=== PATIENT | male | born 1960 | race Caucasian/White ===

== ENCOUNTER → 2017-01-29 | Outpatient (CLI) | payer BC ==
[~2017-01-29] MED LIST: ACET-1311 PO; ASPI-435 PO; ASPI325T39 PO; AZITTAB PO; CEFP200T14 PO; DEXT30TA7 PO; MULT-506 PO; OMEG10007 PO; XRL10 PO; aspirin PO; fish oil PO
--- NOTE | 2017-01-29 11:40 | DIAGNOSTIC IMAGING REPORT ---
ULTRASOUND VENOUS DOPPLER ULTRASOUND OF THE LEFT LOWER EXTREMITY CLINICAL HISTORY: Left leg swelling. History of DVT. COMPARISON STUDY: None FINDINGS: Real-time and color flow Doppler imaging were performed. Flow was seen within the femoral, popliteal and calf veins with no intraluminal thrombus demonstrated. The saphenous vein is patent. IMPRESSION: No evidence of left lower extremity DVT. Electronically signed by: Shaun Klein M.D. 01/29/2017 11:38 AM Dictated Date/Time: 01/29/2017 11:37 AM
== END | disposition home or self-care (01) ==
LOC: C.ULTR 11:03
PROVIDERS: ATTEND Nurse Practitioner Family
DX: M79.605 Pain in left leg (principal); M79.89 Other specified soft tissue disorders; Z86.718 Personal history of other venous thrombosis and embolism

== ENCOUNTER → 2017-02-25 | Outpatient (CLI) | payer BC ==
--- NOTE | 2017-02-25 19:56 | DIAGNOSTIC IMAGING REPORT ---
LEFT FOOT 3 VIEWS CLINICAL HISTORY: Left foot pain. FINDINGS: 3 views of the left foot are obtained. No prior studies are available for comparison at the time of dictation. The skeletal structures are well mineralized. No fracture is seen. There are large dorsal and plantar calcaneal enthesophytes. The joint spaces of the foot appear preserved. No erosive change is seen. The overlying soft tissues are within normal limits. IMPRESSION: 1. No acute bony abnormality is identified in the left foot. 2. Large heel spurs. Electronically signed by: Castillo Whitman M.D. 02/25/2017 7:54 PM Dictated Date/Time: 02/25/2017 7:53 PM
== END | disposition home or self-care (01) ==
LOC: C.RAD 17:46
PROVIDERS: ATTEND Family Medicine
DX: M79.672 Pain in left foot (principal); M77.32 Calcaneal spur, left foot

== ENCOUNTER → 2017-03-11 | Outpatient (CLI) | payer BC ==
--- NOTE | 2017-03-11 16:42 | DIAGNOSTIC IMAGING REPORT ---
ULTRASOUND ABDOMEN COMPLETE CLINICAL HISTORY: Lower extremity edema. COMPARISON STUDY: No priors. TECHNIQUE: Real-time, grayscale, and color flow sonography of the abdomen was performed. Images are reviewed in the transverse and longitudinal planes. FINDINGS: Liver: The liver is enlarged, measuring 20 cm in length. The liver demonstrates heterogeneously increased echotexture consistent with hepatic steatosis. There is no intrahepatic biliary ductal dilatation. The main portal vein is patent. There is a 3.9 cm lobulated cyst is identified in the left hepatic lobe. Gallbladder: There is biliary sludge. The gallbladder is otherwise normal in appearance. No shadowing gallstones are identified. There is no gallbladder wall thickening or pericholecystic fluid. A sonographic Spencer's sign is reportedly absent. The common bile duct measures up to 0.4 cm in diameter. Pancreas: Visualized portions of the pancreatic head and body are normal in appearance. Spleen: The spleen is normal in size and echotexture, measuring 9.7 cm in length. Kidneys: The kidneys are normal in size and echotexture. There is no hydronephrosis. The right kidney measures 9.4 cm in length and the left kidney measures 10.9 cm in length. No shadowing calculi are identified. A 1.8 cm cyst is noted in the left kidney. Abdominal vasculature: Visualized portions of the abdominal aorta are normal in caliber. Ascites: None. IMPRESSION: 1. No acute sonographic abnormality is identified. 2. Biliary sludge. No shadowing gallstones are seen. 3. Hepatomegaly and hepatic steatosis. Electronically signed by: Castillo Whitman M.D. 03/11/2017 4:41 PM Dictated Date/Time: 03/11/2017 4:39 PM
== END | disposition home or self-care (01) ==
LOC: C.ULTR 15:40
PROVIDERS: ATTEND Family Medicine
DX: R60.0 Localized edema (principal)

== ENCOUNTER → 2017-03-15 | Outpatient (CLI) | payer BC ==
--- NOTE | 2017-03-15 12:30 | ECHOCARDIOGRAM REPORT ---
*NOTICE TO RECEIVING DEMOCRAT AGENCY This information is strictly Confidential and protected under [place] law. [place] law prohibits you from making any further disclosure of this information unless further disclosure is expressly permitted by the written consent of the person to whom it pertains or is authorized by law. A general authorization for the release of medical or other information is not sufficient for this purpose. Hospital accepts no responsibility if the information is made available to any other person, INCLUDING THE PATIENT. Interpretation Summary * Name: TANIKA KU Study Date: 03/15/2017 10:46 AM BP: 135/78 mmHg * Patient Location: [facility] HR: 87 * : 1960 (M/d/yyyy) Gender: Male Height: 72 in * Age: 56 yrs Ethnicity: CA Weight: 260 lb * Ordering Physician: David Garcia * Referring Physician: David Garcia * Performed By: Radha Santamaria RDCS * * Reason For Study: Bilateral leg edema * BSA: 2.4 m2 * -- Conclusions -- * There is mild concentric left ventricular hypertrophy. * Left ventricular systolic function is normal. * Grade I diastolic dysfunction, (abnormal relaxation pattern). Procedure Details * A complete two-dimensional transthoracic echocardiogram was performed (2D, M-mode, Doppler and color flow Doppler). Left Ventricle * The left ventricle is normal in size. * There is mild concentric left ventricular hypertrophy. * Ejection Fraction = 55-60%. * Left ventricular systolic function is normal. * Grade I diastolic dysfunction, (abnormal relaxation pattern). * The left ventricular wall motion is normal. Right Ventricle * The right ventricle is normal in size and function. Atria * The left atrial size is normal. * Right atrial size is normal. Mitral Valve * The mitral valve is grossly normal. * Significant mitral regurgitation is absent. Tricuspid Valve * The tricuspid valve is not well visualized, but is grossly normal. * Significant tricuspid regurgitation is absent. Aortic Valve * Probably trileaflet * No hemodynamically significant valvular aortic stenosis. * No aortic regurgitation is present. Great Vessels * The aortic root is normal size. Pericardium/Pleural * There is no pericardial effusion. Great Vessels * Normal inferior vena cava size and collapsability with sniff indicates a normal right atrial pressure of 3 mmHg MMode 2D Measurements and Calculations IVSd 1.2 cm LVIDd 3.7 cm LVIDs 2.5 cm LVPWd 1.3 cm IVS/LVPW 0.87 FS 31.8 % EDV(Teich) 57.3 ml ESV(Teich) 22.5 ml EF(Teich) 60.7 % EDV(cubed) 49.7 ml ESV(cubed) 15.8 ml EF(cubed) 68.2 % LV mass(C)d 153.9 grams LV mass(C)dI 64.6 grams/m\S\2 CO(Teich) 2.9 l/min CI(Teich) 1.2 l/min/m\S\2 SV(Teich) 34.8 ml SI(Teich) 14.6 ml/m\S\2 CO(cubed) 2.8 l/min CI(cubed) 1.2 l/min/m\S\2 SV(cubed) 33.9 ml SI(cubed) 14.2 ml/m\S\2 Ao root diam 3.8 cm Ao root area 11.5 cm\S\2 ACS 2.4 cm LA dimension 1.8 cm asc Aorta Diam 3.6 cm LA/Ao 0.48 LVOT diam 2.0 cm LVOT area 3.1 cm\S\2 LVAd ap4 29.2 cm\S\2 LVLd ap4 8.8 cm EDV(MOD-sp4) 80.0 ml LVAs ap4 16.6 cm\S\2 LVLs ap4 7.1 cm ESV(MOD-sp4) 33.0 ml EF(MOD-sp4) 58.8 % LVAd ap2 29.6 cm\S\2 LVLd ap2 8.3 cm EDV(MOD-sp2) 88.0 ml LVAs ap2 17.4 cm\S\2 LVLs ap2 6.5 cm ESV(MOD-sp2) 39.0 ml EF(MOD-sp2) 55.7 % CO(MOD-sp4) 3.9 l/min CI(MOD-sp4) 1.6 l/min/m\S\2 SV(MOD-sp4) 47.0 ml SI(MOD-sp4) 19.7 ml/m\S\2 CO(MOD-sp2) 4.1 l/min CI(MOD-sp2) 1.7 l/min/m\S\2 SV(MOD-sp2) 49.0 ml SI(MOD-sp2) 20.6 ml/m\S\2 Doppler Measurements and Calculations MV E max elma 63.7 cm/sec MV A max elma 63.7 cm/sec MV E/A 1.0 MV dec time 0.20 sec Ao V2 max 127.6 cm/sec Ao max PG 6.5 mmHg Ao max PG (full) 1.0 mmHg KONRAD(V,A) 2.9 cm\S\2 KONRAD(V,D) 2.9 cm\S\2 LV V1 max PG 5.5 mmHg LV V1 max 117.2 cm/sec PA V2 max 139.8 cm/sec PA max PG 7.8 mmHg PA acc slope 632.7 cm/sec\S\2 PA acc time 0.13 sec PA pr(Accel) 20.4 mmHg
== END | disposition home or self-care (01) ==
LOC: C.CPL 10:26
PROVIDERS: ATTEND Family Medicine
DX: R60.0 Localized edema (principal); I51.7 Cardiomegaly

== ENCOUNTER → 2017-08-19 | Outpatient (CLI) | payer BC ==
--- NOTE | 2017-08-19 16:01 | DIAGNOSTIC IMAGING REPORT ---
CHEST 2 VIEWS ROUTINE CLINICAL HISTORY: FEVER, RALES IN RLL COMPARISON STUDY: No previous studies for comparison. FINDINGS: The heart is normal in size. There is mild aortic tortuosity/ectasia. There is no failure. There is no focal pulmonary consolidation. There is mild blunting of the right lateral posterior costophrenic angles suggesting a small effusion.[ IMPRESSION: Suspected small right pleural effusion. No evidence of focal pulmonary consolidation. No evidence of failure. Electronically signed by: Shaun Klein M.D. 08/19/2017 3:59 PM Dictated Date/Time: 08/19/2017 3:58 PM
== END | disposition home or self-care (01) ==
LOC: C.RAD1850 14:36
PROVIDERS: ATTEND Student in an Organized Health Care Education/Training Program
DX: B34.9 Viral infection, unspecified (principal)

== ENCOUNTER → 2017-08-21 | Outpatient (CLI) | payer BC ==
--- NOTE | 2017-08-21 16:07 | DIAGNOSTIC IMAGING REPORT ---
CHEST DECUBS HISTORY: FEVER, POSSIBLE SMALL RIGHT PLEURAL EFFUSION ON PREVIOUS EXAM COMPARISON: Chest 08/19/2017. FINDINGS: Decubitus views of the chest were performed. There appears to be a trace right pleural effusion. No left pleural effusion identified. IMPRESSION: Trace right pleural effusion. Electronically signed by: Tristen Connor M.D. 08/21/2017 4:06 PM Dictated Date/Time: 08/21/2017 4:05 PM
== END | disposition home or self-care (01) ==
LOC: C.RAD 14:58
PROVIDERS: ATTEND Student in an Organized Health Care Education/Training Program
DX: J90 Pleural effusion, not elsewhere classified (principal)

== ENCOUNTER 2017-08-25 15:54 | Emergency (ER) | payer BC ==
[~2017-08-25] VITALS: Ht 182.9 cm; Wt 109.6 kg
[~2017-08-25 15:54] MED LIST changes: -ACET-1311 PO; -ASPI325T39 PO; -AZITTAB PO; -CEFP200T14 PO; -DEXT30TA7 PO; -OMEG10007 PO; -XRL10 PO
[2017-08-25 15:56] VITALS: TEMP 37
[2017-08-25] MEDS ORDERED: SODIUM CHLORIDE 0.9% 1000ML 1,000 ML IV ONE (16:14)
[2017-08-25] MEDS ORDERED: ACETAMINOPHEN 325 MG TAB PO STA (16:14)
[2017-08-25] MEDS ORDERED: OMEG10007 PO (16:28)
[2017-08-25] MEDS ORDERED: ASPI325T39 PO (16:28)
[2017-08-25] MEDS ORDERED: XRL10 PO (16:28)
[2017-08-25] MEDS ORDERED: OPTIRAY 320 IV PRN (16:30)
[2017-08-25] MEDS ORDERED: AZITTAB PO (16:31)
[2017-08-25] MEDS ORDERED: ACET-1311 PO (16:31)
[2017-08-25] MEDS ORDERED: DEXT30TA7 PO (16:31)
--- NOTE | 2017-08-25 16:37 | EMERGENCY ROOM VISIT NOTE ---
History Report prepared by Dilan: Wilman Collins Under the Supervision of: Dr. John Luis M.D. First contact with patient: 16:00 Chief Complaint: ABNORMAL LABS Stated Complaint: HIGH D-DIMER, FLU SX, ESR History of Present Illness The patient is a 57 year old white male with a past medical history of right leg DVT and HTN that recently resolved, who presents to the ED with a cc of an elevated D-Dimer found on labs this morning. Positive fevers, cough, nausea, lack of appetite. Negative leg swelling, abdominal pain, SOB, and hematuria. The patient states that two weeks ago he was starting to get sick and was getting fevers and chills. He was seen by his PCP, and they found he had a right sided pleural effusion, and it was better two days ago. He recently was started on a z-pack, and they found that his D-dimer was elevated, and he had a sed rate of 109. He takes aspirin daily, and he takes Xarelto when he travels. 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 He states that he flew back from [place] in May. Source of History: patient Onset: this morning Position: other (global) Quality: other (elevated D-Dimer) Associated Symptoms: + fevers, + cough, + nausea, No SOB, No abdominal pain , No urinary symptoms Review of Systems See HPI for pertinent positives and negatives. A total of ten systems were reviewed and were otherwise negative. Past Medical & Surgical Medical Problems: (1) DVT (deep venous thrombosis) (2) HTN (hypertension) Social History Smoking Status: Never Smoker Marital Status: Housing Status: lives with family Occupation Status: employed Current/Historical Medications Scheduled Aspirin (Aspirin Ec), 325 MG PO DAILY Azithromycin (Zithromax Z-Vinicius), 1 PKT PO UD Cefpodoxime Proxetil (Cefpodoxime Proxetil), 1 TAB PO BID Fish Oil ([place]-3), 1 CAP PO DAILY Multivitamin (Multivitamin), 1 TAB PO DAILY Scheduled PRN Acetaminophen (Tylenol), 650 MG PO DIRECTED PRN for Pain or Fever Aspirin (Aspirin 81), 1 DOSE PO DIRECTED PRN for "TRAVELING REGIMEN" Dextromethorphan-Guaifenesin (Mucinex Dm), 1 TAB PO Q12 PRN for CONGESTION Rivaroxaban (Xarelto), Unknown Dose PO DAILY PRN for "DAYS OF TRAVEL" ONLY Allergies Coded Allergies: Codeine (Verified Allergy, Intermediate, HIVES, 08/25/17) Penicillins (Verified Allergy, Intermediate, HIVES, 08/25/17) Physical Exam Vital Signs Date Time Temp Pulse Resp B/P (MAP) Pulse Ox O2 Delivery O2 Flow Rate FiO2 08/25/17 19:53 97 23 139/95 97 08/25/17 19:45 97 20 96 08/25/17 19:30 98 97 08/25/17 19:15 94 96 08/25/17 19:00 98 16 96 08/25/17 18:25 101 19 147/97 95 Room Air 08/25/17 17:30 104 08/25/17 15:56 37.0 113 17 145/100 96 Room Air Physical Exam GENERAL: Awake, alert, well-appearing, NAD HENT: Normocephalic, atraumatic. EYES: Normal conjunctiva. Sclera non-icteric. NECK: Non-stridulous. Supple. No nuchal rigidity. FROM. RESPIRATORY: CTAB, no rhonchi, wheezing, crackles CARDIAC: RRR, no MRG ABDOMEN: Soft, NTND, BS+ MSK: No CVA TTP. 1-2+ pitting edema in the RLE which is asymmetric to the left. No calf pain, calor, or erythema. No chest wall TTP NEURO: GCS 15, CN 2-12 intact, moves all 4s on command SKIN: No rash or jaundice noted. Medical Decision & Procedures ER Provider Diagnostic Interpretation: Radiology results as stated below per my review and radiologist interpretation: (CHEST FOR PE) ANGIO WITH CT DOSE: 628.72 mGy.cm HISTORY: Chest pain dyspnea TECHNIQUE: Multiaxial CT images of the chest were performed following the intravenous administration of contrast to evaluate the pulmonary arteries. Maximal intensity projection images were also obtained. A dose lowering technique was utilized adhering to the principles of ALARA. COMPARISON STUDY: None. FINDINGS: Thoracic aorta is normal in course and caliber. Pulmonary vasculature enhances uniformly. There are no major filling defects. There is focal parenchymal infiltrate right lung base. There is trace amount of right and to a lesser extent left pleural fluid. Heart is at the upper limits normal terms of size. Examination is negative for pneumothorax. His note is made of heterogeneity of the central right hepatic lobe with a stick process involving the central left hepatic lobe. Correlation with a prior abdominal ultrasound dated 03/11/2017 suggests and the left hepatic lobe cysts as well as potential fatty infiltration of the central right hepatic lobe. IMPRESSION: 1. Study is negative for pulmonary embolus. 2. Small parenchymal infiltrate right base combined with a small right effusion. The above report was generated using voice recognition software. It may contain grammatical, syntax or spelling errors. Electronically signed by: Jonathan Julien M.D. 08/25/2017 6:34 PM Dictated Date/Time: 08/25/2017 6:30 PM CHEST ONE VIEW PORTABLE CLINICAL HISTORY: Evaluate Fever/Sepsis dyspnea COMPARISON STUDY: 08/21/2017 FINDINGS: Potential developing interstitial infiltrates involving the right and to lesser extent left base. Mid and upper lungs are considered clear. No evidence for cardiac enlargement. IMPRESSION: Developing right and to a lesser extent left basilar parenchymal infiltrates. The above report was generated using voice recognition software. It may contain grammatical, syntax or spelling errors. Electronically signed by: Jonathan Julien M.D. 08/25/2017 5:16 PM Dictated Date/Time: 08/25/2017 5:16 PM R VENOUS DOPP LOWER EXT UNILAT CLINICAL HISTORY: prior DVT, swelling pain. Edema. TECHNIQUE: Venous Doppler COMPARISON STUDY: None FINDINGS: Findings of mild venous scarring of the right popliteal vein. No evidence for acute deep venous thrombosis. Compressibility and augmentation characteristics are unremarkable. IMPRESSION: No evidence for acute deep venous thrombosis. Mild venous scarring right popliteal vein. The above report was generated using voice recognition software. It may contain grammatical, syntax or spelling errors. Electronically signed by: Jonathan Julien M.D. 08/25/2017 6:20 PM Dictated Date/Time: 08/25/2017 6:19 PM Laboratory Results 08/25/17 16:25 Red Blood Count 3.78, Mean Corpuscular Volume 94.2, Mean Corpuscular Hemoglobin 33.6, Mean Corpuscular Hemoglobin Concent 35.7, Mean Platelet Volume 8.8, Neutrophils (%) (Auto) 76.9, Lymphocytes (%) (Auto) 11.7, Monocytes (%) (Auto) 10.5, Eosinophils (%) (Auto) 0.4, Basophils (%) (Auto) 0.1, Neutrophils # (Auto ) 12.16, Lymphocytes # (Auto) 1.86, Monocytes # (Auto) 1.66, Eosinophils # (Auto ) 0.07, Basophils # (Auto) 0.02 08/25/17 16:25 Test 08/25/17 16:25 08/25/17 16:46 White Blood Count 15.84 K/uL (4.8-10.8) Red Blood Count 3.78 M/uL (4.7-6.1) Hemoglobin 12.7 g/dL (14.0-18.0) Hematocrit 35.6 % (42-52) Mean Corpuscular Volume 94.2 fL (80-100) Mean Corpuscular Hemoglobin 33.6 pg (25-34) Mean Corpuscular Hemoglobin Concent 35.7 g/dl (32-36) Platelet Count 423 K/uL (130-400) Mean Platelet Volume 8.8 fL (7.4-10.4) Neutrophils (%) (Auto) 76.9 % Lymphocytes (%) (Auto) 11.7 % Monocytes (%) (Auto) 10.5 % Eosinophils (%) (Auto) 0.4 % Basophils (%) (Auto) 0.1 % Neutrophils # (Auto) 12.16 K/uL (1.4-6.5) Lymphocytes # (Auto) 1.86 K/uL (1.2-3.4) Monocytes # (Auto) 1.66 K/uL (0.11-0.59) Eosinophils # (Auto) 0.07 K/uL (0-0.5) Basophils # (Auto) 0.02 K/uL (0-0.2) RDW Standard Deviation 44.2 fL (36.4-46.3) RDW Coefficient of Variation 12.8 % (11.5-14.5) Immature Granulocyte % (Auto) 0.4 % Immature Granulocyte # (Auto) 0.07 K/uL (0.00-0.02) Prothrombin Time 13.0 SECONDS (9.0-12.0) Prothromb Time International Ratio 1.2 (0.9-1.1) Activated Partial Thromboplast Time 25.9 SECONDS (21.0-31.0) Partial Thromboplastin Ratio 1.0 Anion Gap 6.0 mmol/L (3-11) Est Creatinine Clear Calc Drug Dose 95.9 ml/min Estimated GFR () 86.5 Estimated GFR (Non- 74.6 BUN/Creatinine Ratio 12.0 (10-20) Calcium Level 8.7 mg/dl (8.5-10.1) Total Bilirubin 0.8 mg/dl (0.2-1) Direct Bilirubin 0.3 mg/dl (0-0.2) Aspartate Amino Transf (AST/SGOT) 35 U/L (15-37) Alanine Aminotransferase (ALT/SGPT) 74 U/L (12-78) Alkaline Phosphatase 151 U/L (45-117) Total Protein 7.5 gm/dl (6.4-8.2) Albumin 2.4 gm/dl (3.4-5.0) Lipase 144 U/L (73-393) Urine Color YELLOW Urine Appearance CLEAR (CLEAR) Urine pH 6.0 (4.5-7.5) Urine Specific Sixes 1.020 (1.000-1.030) Urine Protein NEG (NEG) Urine Glucose (UA) NEG (NEG) Urine Ketones NEG (NEG) Urine Occult Blood TRACE (NEG) Urine Nitrite NEG (NEG) Urine Bilirubin NEG (NEG) Urine Urobilinogen POS (NEG) Urine Leukocyte Esterase NEG (NEG) Urine WBC (Auto) 1-5 /hpf (0-5) Urine RBC (Auto) 5-10 /hpf (0-4) Urine Hyaline Casts (Auto) 1-5 /lpf (0-5) Urine Epithelial Cells (Auto) 5-10 /lpf (0-5) Urine Bacteria (Auto) NEG (NEG) Influenza Type A Antigen Neg for Influ A (NEG) Influenza Type B Antigen Neg for Influ B (NEG) Laboratory results reviewed by me Medications Administered Medications (Trade) Dose Ordered Sig/Nicolle Route Start Time Stop Time Status Last Admin Dose Admin Sodium Chloride 1,000 ml @ 2,000 mls/hr Q30M ONCE IV 08/25/17 16:14 08/25/17 16:43 DC 08/25/17 16:14 2,000 MLS/HR Acetaminophen (Tylenol Tab) 650 mg NOW STAT PO 08/25/17 16:14 08/25/17 16:19 DC 08/25/17 16:14 650 MG Ceftriaxone Sodium (Rocephin Inj) 1 gm NOW STAT IV 08/25/17 17:36 08/25/17 17:39 DC 08/25/17 17:36 1 GM ECG Indication: other (elevated D-Dimer) Rate (beats per minute): 107 Rhythm: sinus tachycardia Findings: T-wave inversion (in lead 3), no ectopy, other (Normal intervals, normal axis. No other STS changes or TWI) ED Course 1600: The patient was evaluated in room C9. A complete history and physical exam was performed. 1837: I reevaluated the patient, and he was doing well. 1911: I reevaluated the patient. Discussed results and discharge instructions: He verbalized understanding and agreement. The patient is ready for discharge. Medical Decision The patient is a 57 year old white male with a past medical history of right leg DVT and HTN that recently resolved, who presents to the ED with a cc of an elevated D-Dimer found on labs this morning. Positive fevers, cough, nausea, lack of appetite. Negative leg swelling, abdominal pain, SOB, and hematuria. Triage Nursing notes reviewed. The patient's presentation and history were concerning for URI, pneumonia, bronchitis, DVT, PE, chronic lymphedema. Patient was seen and evaluated the bedside. Patient stated he said some infectious type symptoms of the last 3-4 weeks. Patient has had some documented fevers and cough with clear sputum. Patient does have a history of prior DVT right lower extremity swelling which is chronic. She denies any recent car or plane travel. Patient denies any shortness breath or chest pain. He was seen in clinic where he had an elevated sedimentation rate as well as d -dimer. Bedside patient is nontoxic well-appearing and not in any acute distress. Patient is not tachypneic nor hypoxic. The elevated labs may be related to his infectious type symptoms are given the patient's prior DVT further workup was initiated. Patient had blood work, ultrasound of the right lower extremity and CT PE protocol in addition to EKG and supportive care. Patient's EKG did show some sinus tach but was nonischemic. Patient's blood work did show a mild leukocytosis with an elevated white blood cell count. Patient had a chest x-ray with bilateral patchy opacities. Patient was not hypoxic or tachypneic. Patient was given a dose of Rocephin. Patient's heart rate improved improved supportive care. Patient's ultrasound of the right lower extremity was negative for DVT. Patient's CT of the chest negative for any acute pulmonary embolus. Patient did show signs of consolidation. Upon reassessment patient was borderline tachycardic feeling much improved. Patient' s curb 65 score was 0. Given patient's improved mental in his symptoms he was switched to a different antibiotic at this time and was considered suitable for outpatient treatment and follow-up. Patient was given strict follow-up, discharge, return precautions. Patient agreed with plan of care and was safely discharged home. Medication Reconcilliation Current Medication List: was personally reviewed by me Blood Pressure Screening Patient's blood pressure: Elevated blood pressure Blood pressure disposition: Referred to PCP Impression Primary Impression: Abnormal laboratory test Additional Impression: Pneumonia Scribe Attestation The scribe's documentation has been prepared under my direction and personally reviewed by me in its entirety. I confirm that the note above accurately reflects all work, treatment, procedures, and medical decision making performed by me. Departure Information Dispostion Home / Self-Care Prescriptions Cefpodoxime Proxetil (CEFPODOXIME PROXETIL) 200 Mg Tab 1 TAB PO BID for 7 Days, #14 TAB Prov: John Luis M.D. 08/25/17 Referrals David Garcia M.D. (PCP) Forms HOME CARE DOCUMENTATION FORM, IMPORTANT VISIT INFORMATION, WORK / SCHOOL INSTRUCTIONS Patient Instructions My [facility], Pneumonia Additional Instructions Please return to the emergency department if you have worsening or recurrent symptoms not amenable to at-home treatment. Please call for a follow-up appointment with her primary care physician. Please take your medications as prescribed. If you have other concerns and/or complaints please feel free to also call your primary care physician's office or return the ED for further evaluation, management, and treatment. You may take 600 mg Ibuprofen every 6 hours as needed for pain with food for no more than 2 consecutive days. You may take tylenol 1000mg every 6 hours as needed for pain. You may take motrin and tylenol separately or at the same time. Continue your other supportive care efforts at home. Take your antibiotics as prescribed. Please stop using the other antibiotics you were given. You have been examined and treated today on an emergency basis only. This is not a substitute for, or an effort to provide, complete comprehensive medical care. It is impossible to recognize and treat all injuries or illnesses in a single emergency department visit. It is therefore important that you follow up closely with [facility]. Call as soon as possible for an appointment. Thank you for your time and consideration. I look forward to speaking with you again soon. Please don't hesitate to call us if you have any questions. Problem Qualifiers Additional Impression: Pneumonia Pneumonia type: due to unspecified organism Laterality: right Lung location : lower lobe of lung Qualified Codes: J18.1 - Lobar pneumonia, unspecified organism
[2017-08-25 16:40] LABS: BASO % 0.1 %; BASO ABS # 0.02 K/uL (0-0.2); COMPLETE YES; EOS % 0.4 %; HEMATOCRIT 35.6 % (42-52); IG% 0.4 %; LYMPH % 11.7 %; LYMPH ABS # 1.86 K/uL (1.2-3.4); MEAN CELL VOLUME 94.2 fL (80-100); MEAN CORPUSCULAR HEMOGLOBIN 33.6 pg (25-34); MEAN CORPUSCULAR HGB CONC 35.7 g/dl (32-36); MEAN PLATELET VOLUME 8.8 fL (7.4-10.4); MONO % 10.5 %; NEUT % 76.9 %; PLATELET COUNT 423 K/uL (130-400); RED BLOOD COUNT 3.78 M/uL (4.7-6.1); WHITE BLOOD COUNT 15.84 K/uL (4.8-10.8)
[2017-08-25 16:49] VITALS: Ht 182.9 cm; Wt 109.6 kg
[2017-08-25 16:49] LABS: INR 1.2 (0.9-1.1)
[2017-08-25 16:58] LABS: CALCIUM 8.7 mg/dl (8.5-10.1); CREATININE 1.1 mg/dl (0.60-1.40); POTASSIUM 3.6 mmol/L (3.5-5.1)
[2017-08-25 17:00] LABS: MANUAL MICROSCOPIC REQUIRED? NO; REVIEW REQ? NO; URINE APPEARANCE CLEAR (CLEAR); URINE BILIRUBIN NEG (NEG); URINE COLOR YELLOW; URINE NITRITE NEG (NEG); UROBILINOGEN POS (NEG); ZZUR CULT IF INDIC CLEAN CATCH NO
--- NOTE | 2017-08-25 17:18 | DIAGNOSTIC IMAGING REPORT ---
CHEST ONE VIEW PORTABLE CLINICAL HISTORY: Evaluate Fever/Sepsis dyspnea COMPARISON STUDY: 08/21/2017 FINDINGS: Potential developing interstitial infiltrates involving the right and to lesser extent left base. Mid and upper lungs are considered clear. No evidence for cardiac enlargement. IMPRESSION: Developing right and to a lesser extent left basilar parenchymal infiltrates. The above report was generated using voice recognition software. It may contain grammatical, syntax or spelling errors. Electronically signed by: Jonathan Julien M.D. 08/25/2017 5:16 PM Dictated Date/Time: 08/25/2017 5:16 PM
[2017-08-25] MEDS ORDERED: CEFTRIAXONE SOD INJ 1 GM ADDVIAL IV STA (17:36)
--- NOTE | 2017-08-25 18:21 | DIAGNOSTIC IMAGING REPORT ---
R VENOUS DOPP LOWER EXT UNILAT CLINICAL HISTORY: prior DVT, swelling pain. Edema. TECHNIQUE: Venous Doppler COMPARISON STUDY: None FINDINGS: Findings of mild venous scarring of the right popliteal vein. No evidence for acute deep venous thrombosis. Compressibility and augmentation characteristics are unremarkable. IMPRESSION: No evidence for acute deep venous thrombosis. Mild venous scarring right popliteal vein. The above report was generated using voice recognition software. It may contain grammatical, syntax or spelling errors. Electronically signed by: Jonathan Julien M.D. 08/25/2017 6:20 PM Dictated Date/Time: 08/25/2017 6:19 PM
--- NOTE | 2017-08-25 18:35 | DIAGNOSTIC IMAGING REPORT ---
(CHEST FOR PE) ANGIO WITH CT DOSE: 628.72 mGy.cm HISTORY: Chest pain dyspnea TECHNIQUE: Multiaxial CT images of the chest were performed following the intravenous administration of contrast to evaluate the pulmonary arteries. Maximal intensity projection images were also obtained. A dose lowering technique was utilized adhering to the principles of ALARA. COMPARISON STUDY: None. FINDINGS: Thoracic aorta is normal in course and caliber. Pulmonary vasculature enhances uniformly. There are no major filling defects. There is focal parenchymal infiltrate right lung base. There is trace amount of right and to a lesser extent left pleural fluid. Heart is at the upper limits normal terms of size. Examination is negative for pneumothorax. His note is made of heterogeneity of the central right hepatic lobe with a stick process involving the central left hepatic lobe. Correlation with a prior abdominal ultrasound dated 03/11/2017 suggests and the left hepatic lobe cysts as well as potential fatty infiltration of the central right hepatic lobe. IMPRESSION: 1. Study is negative for pulmonary embolus. 2. Small parenchymal infiltrate right base combined with a small right effusion. The above report was generated using voice recognition software. It may contain grammatical, syntax or spelling errors. Electronically signed by: Jonathan Julien M.D. 08/25/2017 6:34 PM Dictated Date/Time: 08/25/2017 6:30 PM
[2017-08-25] MEDS ORDERED: CEFP200T14 PO (18:47)
[2017-08-25 19:53] VITALS: BP 139/95; PULSE 97; O2SAT 97
== END 2017-08-25 19:59 | disposition home or self-care (01) ==
LOC: C.EDB 15:55 → C.EDC 19:59
DX: J18.1 Lobar pneumonia, unspecified organism (principal); R79.9 Abnormal finding of blood chemistry, unspecified; Z86.718 Personal history of other venous thrombosis and embolism; I10 Essential (primary) hypertension; Z79.82 Long term (current) use of aspirin; Z79.899 Other long term (current) drug therapy

== ENCOUNTER → 2017-09-10 | Outpatient (CLI) | payer BC ==
[~2017-09-10] MED LIST changes: +ACET-1311 PO; +ASPI325T39 PO; +AZITTAB PO; +DEXT30TA7 PO; +OMEG10007 PO; +XRL10 PO; -aspirin PO; -fish oil PO
--- NOTE | 2017-09-10 13:10 | DIAGNOSTIC IMAGING REPORT ---
CHEST 2 VIEWS ROUTINE CLINICAL HISTORY: Pneumonia. Shortness of breath. COMPARISON STUDY: Chest radiograph and chest CT of August 25, 2017. FINDINGS: Lung volumes are normal. No pneumothorax or pleural effusion is present. Pulmonary vascularity is normal. Cardiomediastinal silhouette is normal. No consolidation is identified. IMPRESSION: No acute cardiopulmonary findings. Electronically signed by: Isiah Bustos M.D. 09/10/2017 1:09 PM Dictated Date/Time: 09/10/2017 1:06 PM
[2017-09-10 14:39] LABS: BASO % 0.3 %; BASO ABS # 0.04 K/uL (0-0.2); COMPLETE YES; EOS % 0.9 %; HEMATOCRIT 33.7 % (42-52); IG% 0.3 %; LYMPH % 15.3 %; LYMPH ABS # 2.04 K/uL (1.2-3.4); MEAN CELL VOLUME 94.1 fL (80-100); MEAN CORPUSCULAR HEMOGLOBIN 31.3 pg (25-34); MEAN CORPUSCULAR HGB CONC 33.2 g/dl (32-36); MEAN PLATELET VOLUME 9.5 fL (7.4-10.4); MONO % 10.8 %; NEUT % 72.4 %; PLATELET COUNT 528 K/uL (130-400); RED BLOOD COUNT 3.58 M/uL (4.7-6.1); WHITE BLOOD COUNT 13.37 K/uL (4.8-10.8)
[2017-09-10 14:57] LABS: ALT/SGPT 68 U/L (12-78); AST/SGOT 32 U/L (15-37); BLOOD UREA NITROGEN 14 mg/dl (7-18); BUN/CREATININE RATIO 14.4 (10-20); CALCIUM 9.4 mg/dl (8.5-10.1); CARBON DIOXIDE 24 mmol/L (21-32); CHLORIDE 100 mmol/L (98-107); CREATININE 0.98 mg/dl (0.60-1.40); GLUCOSE 89 mg/dl (70-99); POTASSIUM 3.7 mmol/L (3.5-5.1); SODIUM 133 mmol/L (136-145)
[2017-09-10 15:00] LABS: ALB/GLOB RATIO 0.5 (0.9-2); ALKALINE PHOSPHATASE 135 U/L (45-117)
[2017-09-10 18:02] LABS: URINE APPEARANCE CLEAR (CLEAR); URINE BILIRUBIN NEG (NEG); URINE COLOR YELLOW; URINE EPITHELIAL CELL AUTO 0-5 /lpf (0-5); URINE NITRITE NEG (NEG); URINE SPECIFIC GRAVITY 1.015 (1.000-1.030); UROBILINOGEN NEG (NEG)
[2017-09-10 18:14] LABS: MANUAL MICROSCOPIC REQUIRED? NO; REVIEW REQ? NO
[2017-09-13 05:42] LABS: ALBUMIN 2.7 G/DL (3.8-4.8); ALPHA-2-GLOBULIN % 29.85 %; BETA GLOBULIN % 23.82 %; CREATININE UR 98 MG/DL (20-370); TOTAL PROTEIN 6.2 G/DL (6.2-8.3)
== END | disposition home or self-care (01) ==
LOC: C.RAD1850 12:09
PROVIDERS: ATTEND Physician Assistant
DX: R50.9 Fever, unspecified (principal); E88.09 Other disorders of plasma-protein metabolism, not elsewhere classified; R79.82 Elevated C-reactive protein (CRP); R06.02 Shortness of breath; J18.9 Pneumonia, unspecified organism; R10.9 Unspecified abdominal pain

== ENCOUNTER → 2017-09-11 | Outpatient (CLI) | payer BC ==
[2017-09-16 15:14] LABS: ALBUMIN % 27.09 %; ALPHA-2-GLOBULIN % 30.79 %; BETA GLOBULIN % 21.54 %; CREATININE UR 103 MG/DL (20-370); GAMMA GLOBULIN % 20.48 %
== END | disposition home or self-care (01) ==
LOC: C.LAB1850 16:59
PROVIDERS: ATTEND Physician Assistant
DX: E88.09 Other disorders of plasma-protein metabolism, not elsewhere classified (principal); R50.9 Fever, unspecified; R79.82 Elevated C-reactive protein (CRP)

== ENCOUNTER → 2017-09-27 | Outpatient (CLI) | payer BC ==
--- NOTE | 2017-09-27 14:18 | DIAGNOSTIC IMAGING REPORT ---
SINUSES MIN 3 VIEWS ROUTINE CLINICAL HISTORY: 57 years-old Male presenting with R05 [id number]. TECHNIQUE: 4 views of the sinuses were obtained. COMPARISON: None. FINDINGS: No radiographic evidence of paranasal sinus or mastoid air cell opacification. Bony nasal septum midline. Bony orbits normal. Central intracranial calcification likely pineal. IMPRESSION: No radiographic evidence of sinus opacification. Electronically signed by: Kolton Montano M.D. 09/27/2017 2:16 PM Dictated Date/Time: 09/27/2017 2:15 PM
== END | disposition home or self-care (01) ==
LOC: C.RAD1850 13:58
PROVIDERS: ATTEND Physician Assistant
DX: R05 Cough (principal)

== ENCOUNTER → 2017-10-10 | Outpatient (CLI) | payer BC ==
[~2017-10-10] MED LIST changes: +ASCO10003 PO; +ASPI81TA28 PO; +CHOL1000 PO; +IBUP-1050 PO; +LEVO1TAB33 PO; +ZNTT/150 PO
--- NOTE | 2017-10-10 11:15 | DIAGNOSTIC IMAGING REPORT ---
CHEST 2 VIEWS ROUTINE CLINICAL HISTORY: R05 [id number] dyspnea COMPARISON STUDY: 09/10/2017 FINDINGS: The bones soft tissues and hemidiaphragms are normal. The cardiomediastinal silhouette is normal. The lungs are clear. The pulmonary vasculature is normal. IMPRESSION: Negative chest. The above report was generated using voice recognition software. It may contain grammatical, syntax or spelling errors. Electronically signed by: Jonathan Julien M.D. 10/10/2017 11:14 AM Dictated Date/Time: 10/10/2017 11:14 AM
[2017-10-14 18:36] LABS: ANAPLASMA PHAGOCYTOPHIL IGG <1:64 (<1:64); ANAPLASMA PHAGOCYTOPHIL IGM <1:20 (<1:20)
== END | disposition home or self-care (01) ==
LOC: C.RAD1850 10:48
PROVIDERS: ATTEND Physician Assistant
DX: R05 Cough (principal); R19.7 Diarrhea, unspecified

== ENCOUNTER → 2017-10-11 | Outpatient (CLI) | payer BC | END | disposition home or self-care (01) | LOC: C.LAB1850 10:11 | PROVIDERS: ATTEND Physician Assistant | DX: R19.7 Diarrhea, unspecified (principal) ==

== ENCOUNTER 2017-10-15 03:26 | Emergency (ER) | payer BC ==
[~2017-10-15] VITALS: Ht 182.9 cm; Wt 108.4 kg
[~2017-10-15 03:26] MED LIST changes: -ASCO10003 PO; -ASPI81TA28 PO; -CHOL1000 PO; -IBUP-1050 PO; -LEVO1TAB33 PO; -ZNTT/150 PO
[2017-10-15 03:31] VITALS: TEMP 37.2; Ht 182.9 cm; Wt 108.4 kg
[2017-10-15] MEDS ORDERED: ADENOSINE IV SOLN 3 MG/ML 2 ML VIAL ONE (03:44)
--- NOTE | 2017-10-15 03:45 | EMERGENCY ROOM VISIT NOTE ---
History Report prepared by Dilan: Deloris Milner Under the Supervision of: Dr. David Alcocer M.D. First contact with patient: 03:36 Chief Complaint: SHORTNESS OF BREATH Stated Complaint: TUNNEL VISION,LABORED BREATHING Nursing Triage Summary: pt reports started with tx for pneumonia in Jul. and has been increasingly sob since that time has been on abx intermittently since that time . started on lateste course of abx on Sat. pt reports has had "fever of unknown origin" last dose of tylenol and ibuprofen at 0100 pt speaking in 4-5 word sentences History of Present Illness The patient is a 57 year old male who presents to the Emergency Room with complaints of worsening shortness of breath beginning about a month ago. The patient states he was diagnosed with pneumonia on the 25 of August. The patient states he has had a low grade fever through all of August. The past week the patient notes his fever had been higher. Tonight, the patient had chills, heart racing, sweating, and more shortness of breath. The patient denies any recent travel. Source of History: patient Onset: a month ago Position: other (global) Quality: other (shortness of breath) Timing: worsening Associated Symptoms: + fevers, + chills, + diaphoresis, + SOB Review of Systems See HPI for pertinent positives & negatives. A total of 10 systems reviewed and were otherwise negative. Past Medical & Surgical Medical Problems: (1) DVT (deep venous thrombosis) (2) HTN (hypertension) Family History Patient reports no known family medical history. Social History Smoking Status: Never Smoker Marital Status: Housing Status: lives with family Occupation Status: employed Current/Historical Medications Scheduled Ascorbic Acid (Vitamin C), 1,000 MG PO DAILY Aspirin (Aspirin Ec), 243 MG PO DAILY Cholecalciferol (Vitamin D3), 1,000 UNITS PO DAILY Fish Oil ([place]-3), 1 CAP PO DAILY Levofloxacin (Levaquin), 500 MG PO DAILY Multivitamin (Multivitamin), 1 TAB PO DAILY Ranitidine (Zantac), 150 MG PO HS Scheduled PRN Acetaminophen (Tylenol), 650 MG PO DIRECTED PRN for Pain or Fever Aspirin (Aspirin 81), 1 DOSE PO DIRECTED PRN for "TRAVELING REGIMEN" Dextromethorphan-Guaifenesin (Mucinex Dm), 1 TAB PO Q12 PRN for CONGESTION Ibuprofen (Advil), 200-600 MG PO Q4H PRN for Pain or Fever Rivaroxaban (Xarelto), Unknown Dose PO DAILY PRN for "DAYS OF TRAVEL" ONLY Allergies Coded Allergies: Codeine (Verified Allergy, Intermediate, HIVES, 10/15/17) Penicillins (Verified Allergy, Intermediate, HIVES, 10/15/17) Physical Exam Vital Signs Date Time Temp Pulse Resp B/P (MAP) Pulse Ox O2 Delivery O2 Flow Rate FiO2 10/15/17 06:39 128 20 109/73 98 Nasal Cannula 2.0 10/15/17 06:06 123 20 91/64 98 Nasal Cannula 2.0 10/15/17 05:54 124 20 101/72 98 Nasal Cannula 2.0 10/15/17 05:01 126 20 111/66 100 Nasal Cannula 2.0 10/15/17 04:42 125 10/15/17 04:17 122 20 103/60 98 Nasal Cannula 2.0 10/15/17 04:05 124 20 97/54 98 Nasal Cannula 2.0 10/15/17 03:56 97 Nasal Cannula 3.0 10/15/17 03:55 131 20 104/61 97 Nasal Cannula 3.0 10/15/17 03:35 144 10/15/17 03:31 37.2 142 28 121/67 96 Room Air Physical Exam GENERAL: Patient is acutely ill appearing and severe distress. HEENT: No acute trauma, normocephalic atraumatic, dry mucous membranes, no nasal congestion, no scleral icterus. NECK: No stridor, no adenopathy, no meningismus, trachea is midline. LUNGS: Dyspneic and tachypneic. Clear to auscultation and equal bilaterally. No wheeze, no rhonchi. HEART: Tachycardic, very steady at 141. No murmurs, rubs, gallops appreciated. ABDOMEN: Soft, nontender, bowel sounds positive, no masses appreciated, no peritonitis. BACK: No midline tenderness, no CVA tenderness EXTREMITIES: Mild bilateral lower extremity edema, no calf tenderness. Normal motion all extremities, no cyanosis. NEUROLOGIC: Alert and oriented, no acute motor or sensory deficits, no focal weakness, cranial nerves grossly intact. SKIN: Pale and diaphoretic. Medical Decision & Procedures ER Provider Diagnostic Interpretation: X ray results are stated below per my interpretation: Chest: 1 view: Nonspecific interstitial thickening to bilateral lower lobes. Radiology results and stated below per my review and radiologist interpretation: CTA CHEST: Study is very limited by respiratory motion artifact. No evidence of large central pulmonary embolism Thoracic aorta within limits. No pericardial effusion. Small right pleural effusion with associated partial passive collapse. No focal consolidation. Radiologist: Alfredito Berrios MD. CT ABDOMEN & PELVIS With Contrast: Large lobular live masses within the right lobe is partially exophytic at the tip and perihepatic space axial 42 and 52 for example with note of adjacent subcutaneous soft tissue stranding and edema with consideration including abscesses with primary neoplasm or metastatic disease not excluded. Correlate with history and requires further workup. Left hepatic cyst. No bowel dilation or free air. Other solid organs appear within limits. Normal caliber appendix. Diverticulosis. Small pelvic free fluid. Radiologist: Alfredito Berrios MD. Laboratory Results 10/15/17 03:40 Red Blood Count 3.85, Mean Corpuscular Volume 84.9, Mean Corpuscular Hemoglobin 28.3, Mean Corpuscular Hemoglobin Concent 33.3, Mean Platelet Volume 9.9 10/15/17 03:40 Test 10/15/17 03:40 10/15/17 03:53 10/15/17 03:57 10/15/17 04:10 White Blood Count 8.73 K/uL (4.8-10.8) Red Blood Count 3.85 M/uL (4.7-6.1) Hemoglobin 10.9 g/dL (14.0-18.0) Hematocrit 32.7 % (42-52) Mean Corpuscular Volume 84.9 fL (80-100) Mean Corpuscular Hemoglobin 28.3 pg (25-34) Mean Corpuscular Hemoglobin Concent 33.3 g/dl (32-36) Platelet Count 167 K/uL (130-400) Mean Platelet Volume 9.9 fL (7.4-10.4) RDW Standard Deviation 47.7 fL (36.4-46.3) RDW Coefficient of Variation 15.4 % (11.5-14.5) Nucleated RBC Absolute Count (auto) 0.05 K/uL (0-0) Neutrophils % (Manual) 70.7 % Lymphocytes % (Manual) 25.7 % Monocytes % (Manual) 1.8 % Eosinophils % (Manual) 0.9 % Metamyelocytes % 0.9 % Nucleated Red Blood Cells % 0.5 % Neutrophils # (Manual) 6.17 K/uL (1.4-6.5) Total Absolute Neutrophils 6.17 K/uL (1.4-6.5) Lymphocytes # (Manual) 2.24 K/uL (1.2-3.4) Total Absolute Lymphocytes 2.24 K/uL (1.2-3.4) Monocytes # (Manual) 0.16 K/uL (0.11-0.59) Eosinophils # (Manual) 0.08 K/uL (0-0.5) Metamyelocytes # 0.08 K/uL (0-0) Toxic Vacuolation 3+ Echinocytes 1+ Prothrombin Time 14.9 SECONDS (9.0-12.0) Prothromb Time International Ratio 1.4 (0.9-1.1) Activated Partial Thromboplast Time 27.6 SECONDS (21.0-31.0) Partial Thromboplastin Ratio 1.1 Est Creatinine Clear Calc Drug Dose 66.0 ml/min Estimated GFR () 55.4 Estimated GFR (Non- 47.8 BUN/Creatinine Ratio 16.1 (10-20) Calcium Level 9.0 mg/dl (8.5-10.1) Magnesium Level 1.7 mg/dl (1.8-2.4) Total Creatine Kinase 39 U/L (39-308) Creatine Kinase MB 2.1 ng/ml (0.5-3.6) Creatine Kinase MB Ratio 5.4 (0-3.0) Troponin I 0.066 ng/ml (0-0.045) Procalcitonin 47.15 ng/ml (0-0.5) Thyroid Stimulating Hormone (TSH) 2.210 uIu/ml (0.300-4.500) Random Cortisol 33.05 mcg/dl Bedside Lactic Acid Venous 8.47 mmol/L (0.90-1.70) Bedside Hemoglobin 9.5 g/dl (14.0-18.0) Bedside Hematocrit 28 % (42-52) Bedside Sodium 133 mEq/L (135-144) Bedside Potassium 3.5 mEq/L (3.3-5.0) Bedside Chloride 102 mEq/L (101-112) Bedside Total CO2 15 mEq/l (24-31) Anion Gap 21.0 mmol/L (16-25) Bedside Blood Urea Nitrogen 24 mg/dl (7-18) Bedside Creatinine 1.4 mg/dl (0.6-1.3) Bedside Glucose (other) 55 mg/dl (70-99) Bedside Ionized Calcium (Praveena) 1.13 mmol/l (1.12-1.32) Influenza Type A (RT-PCR) Neg for Influ A (NEG) Influenza Type B (RT-PCR) Neg for Influ B (NEG) Test 10/15/17 04:20 10/15/17 06:47 Arterial Blood pH 7.39 (7.35-7.45) Arterial Blood Partial Pressure CO2 23 mmHg (35-46) Arterial Blood Partial Pressure O2 118 mm/Hg (80-95) Arterial Blood HCO3 14 mmol/L (19-24) Arterial Blood Oxygen Saturation 97.2 % (90-95) Arterial Blood Base Excess -10.0 mEq/L (-9-1.8) Arterial Blood Gas Delivery 3 L Shun Test POS (POS) Total Bilirubin 1.8 mg/dl (0.2-1) Direct Bilirubin 1.5 mg/dl (0-0.2) Aspartate Amino Transf (AST/SGOT) 130 U/L (15-37) Alanine Aminotransferase (ALT/SGPT) 106 U/L (12-78) Alkaline Phosphatase 306 U/L (45-117) Pro-B-Type Natriuretic Peptide 1847 pg/ml (0-900) Total Protein 4.6 gm/dl (6.4-8.2) Albumin 1.3 gm/dl (3.4-5.0) Bedside Glucose 103 mg/dl (70-99) Laboratory results as reviewed by me. Medications Administered Medications (Trade) Dose Ordered Sig/Nicolle Route Start Time Stop Time Status Last Admin Dose Admin Adenosine (Adenosine Iv) 12 mg STK-MED ONCE .ROUTE 10/15/17 03:44 10/15/17 03:45 DC 10/15/17 03:49 6 MG Sodium Chloride 2,000 ml @ 999 mls/hr Q2H1M STAT IV 10/15/17 03:58 10/15/17 05:58 DC 10/15/17 03:58 999 MLS/HR Dextrose (Dextrose 50% 50ML Syringe) 50 ml STK-MED ONCE .ROUTE 10/15/17 04:00 10/15/17 04:01 AR 10/15/17 04:00 50 ML Sodium Chloride 1,000 ml @ 999 mls/hr Q1H1M STAT IV 10/15/17 04:13 10/15/17 05:13 DC 10/15/17 04:13 999 MLS/HR Vancomycin HCl 2500 mg/Sodium Chloride 550 ml @ 200 mls/hr ONE STAT IV 10/15/17 04:25 10/15/17 07:09 DC 10/15/17 05:32 200 MLS/HR Aztreonam 2000 mg/ Dextrose 110 ml @ 100 mls/hr NOW STAT IV 10/15/17 04:25 10/15/17 05:30 AR 10/15/17 04:51 100 MLS/HR Doxycycline Hyclate 100 mg/ Dextrose 110 ml @ 50 mls/hr NOW IV 10/15/17 04:30 10/15/17 08:26 AR 10/15/17 04:45 50 MLS/HR Metronidazole (Flagyl / Nss) 500 mg NOW STAT IV 10/15/17 04:25 10/15/17 04:28 AR 10/15/17 04:39 500 MG Oseltamivir Phosphate (Tamiflu Cap) 75 mg NOW STAT PO 10/15/17 04:25 10/15/17 04:28 AR 10/15/17 04:38 75 MG Thiamine HCl (Vitamin B-1 Inj) 100 mg NOW STAT IV 10/15/17 05:00 10/15/17 05:01 AR 10/15/17 05:17 100 MG Albumin Human (Albumin 25%) 25 gm NOW STAT IV 10/15/17 05:01 10/15/17 05:02 AR 10/15/17 05:21 25 GM Sodium Chloride 1,000 ml @ 200 mls/hr Q5H STAT IV 10/15/17 05:20 10/15/17 08:26 AR 10/15/17 05:33 200 MLS/HR Dextrose (Dextrose 50% 50ML Syringe) 50 ml NOW STAT IV 10/15/17 05:56 10/15/17 05:57 AR 10/15/17 05:56 50 ML Procedure Central Venous Catheter Indication: access Catheter type: 3 lumen 16 central line Location: Right IJ position at 17 cm Verbal consent was obtained after the risks and benefits were explained, including but not limited to pneumothorax, hemothorax, vessel injury, bleeding, scarring, infection, pain, and bone/joint/nerve damage. At this time, the risks of the procedure are less than the risks of NOT performing the procedure. A time out was taken and the correct patient and site identified. The patient was placed in the Trendelenburg and the skin was prepped in the standard fashion with chlorhexidine and full sterile drapes applied. The proper landmarks were identified with ultrasound, anesthetized with 1% lidocaine without epinephrine, and the needle was inserted through the skin in the standard fashion. The needle was carefully advanced into blood vessel lumen under ultrasound guidance. The guidewire was placed uneventfully. The vessel is dilated and the catheter was placed. It was sutured into position. There was good blood return from all ports. The patient tolerated the procedure well and there were no complications. Post procedure x-ray was normal. ECG Indication: SOB/dyspnea Rate (beats per minute): 130 Rhythm: sinus tachycardia Findings: no acute ischemic change, no ectopy, other (QTC 518) ED Course 0337: The patient was evaluated in room A3. A complete history and physical exam was performed. 0344: Ordered Adenosine 12 mg .ROUTE. 0349: Administered adenosine and the patient's heart rate went down to the one teens/120s and then went back up to the 140s. 0356: With 2 liters of fluids on the patient, he states his shortness of breath is mildly improved. 0357: Discussed with the patient's case with Dr. Romo who will come over immediately and evaluate the patient. 0358: Ordered Sodium Chloride 2000 ml @ 999 mls/hr. 0400: Ordered Dextrose 50 ml .ROUTE. 0402: The patient reports a ten pound weight loss since July. He notes increased diarrhea but denies any dark stools. 0404: Dr. Romo is at bedside. 0410: Dr. Romo is at bedside, he agrees with preceding with CT chest. 0413: Ordered Sodium Chloride 1000 ml @ 999 mls/hr. 0423: Discussed with Dr. Romo he states to order vancomycin, doxycycline, Flagyl, aztreonam, and Tamiflu. 0425: Ordered Tamiflu Cap 75 mg PO, Metronidazole 500 mg IV, Aztreonam 2,000 mg/ Dextrose 110 ml @ 100 mls/hr IV, Vancomycin HCl 2500 mg/Sodium Chloride 550 ml @ 200 mls/hr IV. 0430: Ordered Doxycycline Hyclate 100 mg/ Dextrose 110 ml @ 50 mls/hr IV. 0450: The patient's heart rate is in the 120s, blood pressure is 110. The patient's breathing mildly improved and coloration has improved. 0500: Ordered Thiamine HCl 100 mg IV. 0501: Ordered Albumin Human 25 gm IV. 0520: Ordered Norepinephrine Bitartrate 8 mg/ Dextrose 508 ml @ 0 mls/hr Protocol IV, Sodium Chloride 1000 ml @ 200 mls/hr. 0534: Long discussion with patient. Discussed test results and that if his blood pressure continues to trend on the low side will start on Levophed. 0538: Discussed the patient's case wit Dr. Mccollum Critical Care. He recommended putting a central line in the patient before transfer. The patient will be evaluated for further treatment and disposition. 0549: Discussed at length regarding central line placement. The patient and his are agreeable. 0556: Ordered Dextrose 50 ml IV. 0639: Ordered Promethazine HCl 12.5 mg/Sodium Chloride 50.5 ml @ 204 mls/hr IV. Medical Decision Differential: Sepsis, Infectious (UTI/Pneumonia/Meningitis/etc), Metabolic/ Electrolyte Abnormality, Cardiac, Hepatic, Endocrine, Toxicologic, Neurologic, amongst other pathologies entertained. Very pleasant 57 yr old male arrives from home in extremis. Tachycardic, mild hypoxia, borderline hypotension. Clearly quite dyspneic and ill appearing with diaphoresis. Over last 2 months with pneumonia treatment and gradually worsening weakness, periodic chills/fevers, weight loss, lack of appetite. Notes feeling a bit better yesterday afternoon thus tried some exercise after which rapid worsening. 2 large bore IVs started with immediate 2 L NSS ordered and patient placed on NC O2. Cultures, LA, labs obtained. On arrival unclear etiology and though being recent illness may have put him in to Aflutter (such a steady HR at 141 on arrival). Thus was given small dose adenosine resulting in it being clear this was sinus tach and not flutter/fib/ svt. iStat reveals hypoglycemia which was treated with initial D50 amp and patient did note feeling a bit better. HR started improving some with NSS bolus though still mild low BP. LA returned at 8 at which time I had CCM get involved who were at bedside in short order. Given DVT history, SOB, and Tachy, felt that PE must be excluded, even though symptoms seem more infectious in origin. As bedside US revealed liver abnormality we opted to obtain CT abdo/Pelv at same time as chest. ABG and Type /Cross obtained prior to sending to CT. During this time WBC returned unremarkable with mild anemia, though no need for transfusion at this time. Procalcitonin high consistent with sepsis that we were leaning towards. On return from CT he was started on extensive broad spectrum abx. Given evidence of mass/absess on right lobe liver felt that this will likely need tertiary care treatment. Both Dr Romo and I felt this patient requires higher level of care that [facility] can not provide. Repeat BSG with persistent hypoglycemia thus another D50 given. Furthermore he was given Thiamine for clotting cascade help. Labs returning with mild LFT elevation and inr. I setting of persistent hypoglycemia this was becoming more clearly a primary liver issue, further confirming need for transfer. CT Chest poor quality though no clear PE. CT Abdo/Pelv with evidence of likely abscess right lobe liver (vs neoplasm/mets). Dr Fernando of [facility] at [place] discussed case with me and accepted for transfer. Given acuity, need for many meds, borderline hypotension possibly requiring Levophed, he requested that central line be placed. After extensive review of risks/benefits with pt/ they agree with central line as well as rodriguez. Essentially anuric with rodriguez placement but as becoming quite dyspneic with laying flat, already received 3L+ NSS within ~2 hrs, I opted to decrease NSS infusion to 200ml/hr as will be at tertiary care center shortly. Other than dyspnea with right IJ placement patient tolerated well and [facility] at bedside as I was suturing in line (there was issue with stitch popping just as he was being loaded to stretcher though other two remained in place and I had discussion with team regarding need to very close monitoring while en route. Line may be just a tad on deep side on CXR though also odd angle and is reasonable to start using for meds/fluids. Patient was starting to develop some ARDS/Pulm Edema by end of ED stay, though as doing quite well on NC O2 and breathing comfortably on sitting up, will hold on PPV in order to avoid further delay in transfer. I felt this was reasonable given fact he is to be transferred by CC team. He was given Phenergan prophylactically per request [facility] Team as there is reported turbulence. I noted to them his mild QTC prolongation and my hesitency to use Zofran. Patient awake, alert, oriented and understands that his breathing may worsen by time at [place], possibly requiring bipap/vent. I had many repeat evaluations and bedisde management of patient throughout. Attempted to answer questions of patient and to best of my ability. Medication Reconcilliation Current Medication List: was personally reviewed by me Blood Pressure Screening Patient's blood pressure: Low blood pressure Blood pressure disposition: Referred to PCP (evaluated further by Jessica) Consults Time Called: [phone] Consulting Physician: Dr. Mccollum Critical Care Returned Call: [phone] Discussed the patient's case. He recommended putting a central line in the patient before transfer. The patient will be evaluated for further treatment and disposition. Impression Primary Impression: Septic shock Additional Impressions: Liver abscess Hypoglycemia Elevated liver enzymes Anemia Critical Care I have personally spent greater than 130 minutes of critical care time in the direct management of this patient. This was a life/limb threatening event. This includes time spent evaluating patient, direct bedside care, chart review, placing orders, interpretation of diagnostic studies, discussion with consultants, patient, and family members, as well as other required patient management activities. This 130 minutes is in excess of all separately billable procedures. Scribe Attestation The scribe's documentation has been prepared under my direction and personally reviewed by me in its entirety. I confirm that the note above accurately reflects all work, treatment, procedures, and medical decision making performed by me. Departure Information Dispostion Transfer Acute Care Facility Referrals No Doctor, Assigned (PCP) Patient Instructions My [facility] Problem Qualifiers
[2017-10-15 03:56] VITALS: O2SAT 97
[2017-10-15] MEDS ORDERED: SODIUM CHLORIDE 0.9% 1000ML 2,000 ML IV STA (03:58)
[2017-10-15] MEDS ORDERED: DEXTROSE 50% 50 ML SYR ONE (04:00)
[2017-10-15 04:01] LABS: HEMATOCRIT 32.7 % (42-52); MEAN CELL VOLUME 84.9 fL (80-100); MEAN CORPUSCULAR HEMOGLOBIN 28.3 pg (25-34); MEAN CORPUSCULAR HGB CONC 33.3 g/dl (32-36); MEAN PLATELET VOLUME 9.9 fL (7.4-10.4); PLATELET COUNT 167 K/uL (130-400); RED BLOOD COUNT 3.85 M/uL (4.7-6.1); WHITE BLOOD COUNT 8.73 K/uL (4.8-10.8)
[2017-10-15 04:10] LABS: ISTAT CREATININE 1.4 mg/dl (0.6-1.3); ISTAT HEMOGLOBIN 9.5 g/dl (14.0-18.0); ISTAT IONIZED CALCIUM 1.13 mmol/l (1.12-1.32)
[2017-10-15] MEDS ORDERED: SODIUM CHLORIDE 0.9% 1000ML 1,000 ML IV STA ×2 (04:13→05:20)
[2017-10-15] MEDS ORDERED: OPTIRAY 320 IV PRN (04:15)
[2017-10-15] MEDS ORDERED: IBUP-1050 PO (04:23)
[2017-10-15] MEDS ORDERED: LEVO1TAB33 PO (04:23)
[2017-10-15] MEDS ORDERED: ZNTT/150 PO (04:23)
[2017-10-15] MEDS ORDERED: ASPI81TA28 PO (04:23)
[2017-10-15] MEDS ORDERED: CHOL1000 PO (04:23)
[2017-10-15] MEDS ORDERED: ASCO10003 PO (04:23)
[2017-10-15] MEDS ORDERED: AZTREONAM IV 2,000 MG in DEXTROSE 5% 100ML 100 ML IV STA (04:25)
[2017-10-15] MEDS ORDERED: OSELTAMIVIR PHOSPHATE 75 MG CAP PO STA (04:25)
[2017-10-15] MEDS ORDERED: VANCOMYCIN INJ 2,500 MG in SODIUM CHLORIDE 0.9% 500ML 500 ML IV STA (04:25)
[2017-10-15] MEDS ORDERED: METRONIDAZOLE 500MG / 100ML NSS IV STA (04:25)
[2017-10-15] MEDS ORDERED: DOXYCYCLINE IV 100 MG in DEXTROSE 5% 100ML 100 ML IV SCH (04:30)
[2017-10-15 04:44] LABS: ARTERIAL BLD GAS O2 SATURATION 97.2 % (90-95); ARTERIAL BLOOD GAS HCO3 14 mmol/L (19-24); ARTERIAL BLOOD GAS PO2 118 mm/Hg (80-95); ARTERIAL BLOOD GAS pH 7.39 (7.35-7.45)
[2017-10-15 04:45] LABS: INR 1.4 (0.9-1.1); PARTIAL THROMBOPLASTIN RATIO 1.1; PROTHROMBIN TIME (PATIENT) 14.9 SECONDS (9.0-12.0)
[2017-10-15 04:45] LABS: ALLEN TEST POS (POS); O2 ADMINISTRATION 3 L
[2017-10-15 04:54] LABS: BUN/CREATININE RATIO 16.1 (10-20); CKMB/CK RATIO 5.4 (0-3.0); CREATININE 1.59 mg/dl (0.60-1.40); MAGNESIUM 1.7 mg/dl (1.8-2.4); POTASSIUM 3.4 mmol/L (3.5-5.1); THYROID STIMULATING HORMONE 2.21 uIu/ml (0.300-4.500)
[2017-10-15] MEDS ORDERED: THIAMINE HCL 100 MG/ML 2 ML VIAL IV STA (05:00)
[2017-10-15] MEDS ORDERED: ALBUMIN HUMAN 25% 12.5 GM/50 ML VIAL IV STA (05:01)
[2017-10-15 05:06] LABS: COMPLETE YES; ECHINOCYTES 1+; EOSINOPHIL % 0.9 %; LYMPH ABS # 2.24 K/uL (1.2-3.4); LYMPHOCYTE % 25.7 %; META ABS # 0.08 K/uL (0-0); METAMYELOCYTE % 0.9 %; NEUTROPHILS % 70.7 %; VACUOLIZATION 3+
[2017-10-15] MEDS ORDERED: NOREPINEPHRINE BIT INJ 8 MG in DEXTROSE 5% 500ML 500 ML IV STA (05:20)
[2017-10-15 05:46] LABS: INFLUENZA A PCR Neg for Influ A (NEG); INFLUENZA B PCR Neg for Influ B (NEG)
[2017-10-15] MEDS ORDERED: DEXTROSE 50% 50 ML SYR IV STA (05:56)
[2017-10-15 06:39] VITALS: BP 109/73; PULSE 128; O2SAT 98
[2017-10-15] MEDS ORDERED: PROMETHAZINE HCL INJ 12.5 MG in SODIUM CHLORIDE 0.9% 50ML 50 ML IV STA (06:39)
--- NOTE | 2017-10-15 06:52 | DIAGNOSTIC IMAGING REPORT ---
CHEST ONE VIEW PORTABLE CLINICAL HISTORY: 57 years-old Male presenting with central access. TECHNIQUE: Portable upright AP view of the chest was obtained. COMPARISON: 10/15/2017 at 3:50 AM. FINDINGS: Interval placement of a right internal jugular central venous catheter which terminates at the superior cavoatrial junction. Atherosclerosis of aortic arch. Mild enlargement of the cardiac silhouette. Mildly low lung volumes. Pulmonary vascular prominence. Hazy perihilar/central opacities bilaterally. No large pleural effusion though a small right pleural effusion may be present. No pneumothorax is. Osseous structures normal. Upper abdomen normal. IMPRESSION: 1. Mild cardiomegaly with central pulmonary opacities and pulmonary vascular prominence most characteristic of pulmonary edema. 2. Suspected small right pleural effusion. 3. No pneumothorax status post right IJ central line placement. Electronically signed by: Kolton Montano M.D. 10/15/2017 6:51 AM Dictated Date/Time: 10/15/2017 6:49 AM
--- NOTE | 2017-10-15 07:17 | DIAGNOSTIC IMAGING REPORT ---
CHEST ONE VIEW PORTABLE CLINICAL HISTORY: 57 years-old Male presenting with Chest Pain. TECHNIQUE: Portable upright AP view of the chest was obtained. COMPARISON: 10/10/2017. FINDINGS: Cardiomediastinal silhouette normal. Prominence of hilar vasculature. Minimal right basilar opacity. Small right pleural effusion. No pneumothorax. Osseous structures normal. Upper abdomen normal. IMPRESSION: 1. Small right pleural effusion with minimal right basilar opacity, possibly atelectasis. Electronically signed by: Kolton Montano M.D. 10/15/2017 7:15 AM Dictated Date/Time: 10/15/2017 7:14 AM
--- NOTE | 2017-10-15 07:35 | DIAGNOSTIC IMAGING REPORT ---
ABD/PELVIS IV CONTRAST ONLY CLINICAL HISTORY: 57 years-old Male presenting with liver mass, shortness of breath. TECHNIQUE: Multidetector CT of the abdomen and pelvis was performed after the administration of intravenous contrast. IV contrast: 115 mL of Optiray 320. A dose lowering technique was used consistent with the principles of ALARA (as low as reasonably achievable). COMPARISON: Ultrasound from 03/11/2017. CT DOSE (mGy.cm): The estimated cumulative dose is 1967.96 mGy.cm. FINDINGS: Shoe Sticks Repairer topogram: Unremarkable. Lung bases: Dependent groundglass and solid consolidation in the right lower lobe with a small right pleural effusion present. Normal heart size. Trace pericardial effusion. Liver: The liver now demonstrates multifocal lobular hypodense lesions with surrounding parenchymal edema. The conglomerate of lesions along the inferior right hepatic lobe demonstrate extracapsular extension with inflammatory changes of the overlying peritoneum and properitoneal fat. Its The lesion in the left lobe is unchanged from prior ultrasound, compatible with hepatic cysts. Hepatic vasculature remains patent centrally. Biliary: No intrahepatic or extrahepatic biliary ductal dilatation. Normal gallbladder. Pancreas: Normal. Spleen: Normal. Adrenal glands: Normal. Kidneys and ureters: Few hypodensities in the kidneys likely simple cysts. No hydronephrosis. No nephrolithiasis. Ureters normal. Bladder: Incompletely evaluated secondary to underdistention. Pelvic organs: Prostate and seminal vesicles normal. Bowel: Diverticulosis of the descending and sigmoid colon. The appendix is normal. No bowel obstruction. Peritoneal cavity: Trace free fluid in the pelvis. Lymph nodes: Few enlarged upper abdominal lymph nodes primarily in the portacaval region measuring up to 13 mm in the short axis. Vasculature: Aorta and IVC patent and normal in caliber. Abdominal wall: Small fat-containing umbilical hernia. Nonspecific subcutaneous edema in the posterior back. Fat-containing right inguinal hernia. Musculoskeletal: Hemangioma noted in the thoracic spine. Osseous structures otherwise normal. IMPRESSION: 1. Multifocal hypodense lesions in the liver are most suspicious for hepatic abscesses. There is also concern for extracapsular extension with developing peritonitis focally along the inferior right lobe of the liver. Differential considerations include metastatic disease, however, this is considered less likely. 2. No clear infectious source in the remainder of the abdomen and pelvis. Diverticulosis without evidence of diverticulitis. 3. Pathologically enlarged upper abdominal lymph nodes primarily in the portacaval region are likely reactive. 4. Dependent groundglass and solid consolidation in the right lower lobe may represent passive atelectasis associated with the small right pleural effusion. The effusion may be reactive to the presence of inflammation in the liver. Electronically signed by: Kolton Montano M.D. 10/15/2017 7:34 AM Dictated Date/Time: 10/15/2017 7:04 AM
--- NOTE | 2017-10-15 07:40 | DIAGNOSTIC IMAGING REPORT ---
(CHEST FOR PE) ANGIO WITH CLINICAL HISTORY: 57 years-old Male presenting with ^hypoxia, labored breathing, clinical concern for pulmonary embolus. TECHNIQUE: Multidetector CT angiography of the chest was performed after administration of intravenous contrast. 3-D volumetric and/or maximum intensity projection (MIP) images were subsequently reconstructed for review. IV contrast: 115 mL of Optiray 320. A dose lowering technique was used consistent with the principles of ALARA (as low as reasonably achievable). COMPARISON: 08/25/2017. CT DOSE (mGy.cm): The estimated cumulative dose is 1967.[address] abdomen and pelvis. FINDINGS: Bar Tacker Sewing Machine topogram: Unremarkable. Pulmonary vasculature: The study is suboptimal secondary to respiratory motion artifact and timing of the contrast bolus limiting evaluation of segmental and subsegmental pulmonary arteries. Allowing for this, no central filling defect to suggest pulmonary embolus. Main pulmonary artery is not enlarged. No flattening of the interventricular septum. No intracardiac intracardiac filling defect. No reflux of contrast into the hepatic veins. Remaining chest: On soft tissue windows, normal thyroid and thoracic inlet. No axillary, supraclavicular, hilar, or mediastinal lymphadenopathy. Normal aorta. Normal heart size. Trace pericardial effusion. Small right pleural effusion. Multiple irregular hypodensities noted in the right hepatic lobe. Well-defined hypodensity in the left hepatic lobe likely hepatic cyst. Please see separately dictated CT of the abdomen or pelvis. On lung windows, dependent groundglass and solid consolidation in the right lower lobe. Respiratory artifact limits evaluation of the lung parenchyma. Large airways patent. On bone windows, benign hemangioma noted in one of the thoracic vertebral bodies. IMPRESSION: 1. No evidence of of a central pulmonary embolus allowing for suboptimal image quality. 2. Dependent groundglass and solid consolidation in the right lower lobe may represent passive atelectasis associated with the small right pleural effusion. 3. Trace pericardial effusion. 4. Multiple hepatic lesions. Please see separately dictated CT of the abdomen and pelvis. Electronically signed by: Kolton Montano M.D. 10/15/2017 7:38 AM Dictated Date/Time: 10/15/2017 7:05 AM
--- NOTE | 2017-10-15 16:57 | Critical Care Consultation ---
Critical Care Consultation Date of Consultation: Oct 15, 2017. Attending Physician: Dr. Alcocer Reason for Consultation: Hypoxia hypotension history of DVT History of Present Illness Patient is a 57-year-old male with a significant past medical history for a DVT who had finished a 6 month course of anticoagulation presently not on anticoagulation. He reports that for the past couple of days he's been having generalized fatigue, describing shaking and chills. He's had difficulty eating and taking enough fluids. This evening he became acutely worse came to [facility] for further evaluation. I was contacted by Dr. Alcocer the emergency department with concern for possible PE given his history of DVT, hypotension and hypoxia. Family History Patient reports no known family medical history. Social History Smoking Status: Never Smoker Smokeless Tobacco Use: No Alcohol Use: none Drug Use: none Marital Status: Housing Status: lives with family Occupation Status: employed ([employer] professor) Allergies Coded Allergies: Codeine (Verified Allergy, Intermediate, HIVES, 10/15/17) Penicillins (Verified Allergy, Intermediate, HIVES, 10/15/17) Home Medications Scheduled Ascorbic Acid (Vitamin C), 1,000 MG PO DAILY Aspirin (Aspirin Ec), 243 MG PO DAILY Cholecalciferol (Vitamin D3), 1,000 UNITS PO DAILY Fish Oil ([place]-3), 1 CAP PO DAILY Levofloxacin (Levaquin), 500 MG PO DAILY Multivitamin (Multivitamin), 1 TAB PO DAILY Ranitidine (Zantac), 150 MG PO HS Scheduled PRN Acetaminophen (Tylenol), 650 MG PO DIRECTED PRN for Pain or Fever Aspirin (Aspirin 81), 1 DOSE PO DIRECTED PRN for "TRAVELING REGIMEN" Dextromethorphan-Guaifenesin (Mucinex Dm), 1 TAB PO Q12 PRN for CONGESTION Ibuprofen (Advil), 200-600 MG PO Q4H PRN for Pain or Fever Rivaroxaban (Xarelto), Unknown Dose PO DAILY PRN for "DAYS OF TRAVEL" ONLY Review of Systems Constitutional: + fever, + chills, + weakness, + fatigue Eyes: + worsening of vision Respiratory: + cough, + shortness of breath, + dyspnea on exertion, + dyspnea at rest Cardiovascular: No chest pain, No orthopnea Abdomen: + nausea, No pain Musculoskeletal: + joint pain, + swelling Genitourinary - Male: No hematuria, No dysuria Psychiatric: No depression symptoms Endocrine: + fatigue, + excessive thirst Hematologic / Lymphatic: No abnormal bleeding/bruising, No clotting problems, No swollen lymph nodes, No night sweats Physical Exam Date Time Temp Pulse Resp B/P (MAP) Pulse Ox O2 Delivery O2 Flow Rate FiO2 10/15/17 06:39 128 20 109/73 98 Nasal Cannula 2.0 10/15/17 06:06 123 20 91/64 98 Nasal Cannula 2.0 10/15/17 05:54 124 20 101/72 98 Nasal Cannula 2.0 10/15/17 05:01 126 20 111/66 100 Nasal Cannula 2.0 10/15/17 04:42 125 10/15/17 04:17 122 20 103/60 98 Nasal Cannula 2.0 10/15/17 04:05 124 20 97/54 98 Nasal Cannula 2.0 10/15/17 03:56 97 Nasal Cannula 3.0 10/15/17 03:55 131 20 104/61 97 Nasal Cannula 3.0 10/15/17 03:35 144 10/15/17 03:31 37.2 142 28 121/67 96 Room Air General Appearance: moderate distress Head: normocephalic, atraumatic Eyes: PERRLA ENT: other (dry mucous membranes) Neck: normal range of motion, no tenderness, trachea midline Respiratory: rhonchi, other (tachypnea) Cardiovasular: irregular rate (tachycardia), other (decreased capillary refill initially) Edema: Bilateral LE (2+) Neuro: alert, oriented x 3 Laboratory Results Last 24 Hours Test 10/15/17 03:40 10/15/17 03:53 10/15/17 03:57 10/15/17 04:10 White Blood Count 8.73 K/uL Red Blood Count 3.85 M/uL Hemoglobin 10.9 g/dL Hematocrit 32.7 % Mean Corpuscular Volume 84.9 fL Mean Corpuscular Hemoglobin 28.3 pg Mean Corpuscular Hemoglobin Concent 33.3 g/dl Platelet Count 167 K/uL Mean Platelet Volume 9.9 fL RDW Standard Deviation 47.7 fL RDW Coefficient of Variation 15.4 % Nucleated RBC Absolute Count (auto) 0.05 K/uL Neutrophils % (Manual) 70.7 % Lymphocytes % (Manual) 25.7 % Monocytes % (Manual) 1.8 % Eosinophils % (Manual) 0.9 % Metamyelocytes % 0.9 % Nucleated Red Blood Cells % 0.5 % Neutrophils # (Manual) 6.17 K/uL Total Absolute Neutrophils 6.17 K/uL Lymphocytes # (Manual) 2.24 K/uL Total Absolute Lymphocytes 2.24 K/uL Monocytes # (Manual) 0.16 K/uL Eosinophils # (Manual) 0.08 K/uL Metamyelocytes # 0.08 K/uL Toxic Vacuolation 3+ Echinocytes 1+ Prothrombin Time 14.9 SECONDS Prothromb Time International Ratio 1.4 Activated Partial Thromboplast Time 27.6 SECONDS Partial Thromboplastin Ratio 1.1 Sodium Level 131 mmol/L Potassium Level 3.4 mmol/L Chloride Level 101 mmol/L Carbon Dioxide Level 15 mmol/L Anion Gap 15.0 mmol/L 21.0 mmol/L Blood Urea Nitrogen 26 mg/dl Creatinine 1.59 mg/dl Est Creatinine Clear Calc Drug Dose 66.0 ml/min Estimated GFR () 55.4 Estimated GFR (Non- 47.8 BUN/Creatinine Ratio 16.1 Random Glucose 50 mg/dl Calcium Level 9.0 mg/dl Magnesium Level 1.7 mg/dl Total Creatine Kinase 39 U/L Creatine Kinase MB 2.1 ng/ml Creatine Kinase MB Ratio 5.4 Troponin I 0.066 ng/ml Procalcitonin 47.15 ng/ml Thyroid Stimulating Hormone (TSH) 2.210 uIu/ml Random Cortisol 33.05 mcg/dl Bedside Lactic Acid Venous 8.47 mmol/L Bedside Hemoglobin 9.5 g/dl Bedside Hematocrit 28 % Bedside Sodium 133 mEq/L Bedside Potassium 3.5 mEq/L Bedside Chloride 102 mEq/L Bedside Total CO2 15 mEq/l Bedside Blood Urea Nitrogen 24 mg/dl Bedside Creatinine 1.4 mg/dl Bedside Glucose (other) 55 mg/dl Bedside Ionized Calcium (Praveena) 1.13 mmol/l Influenza Type A (RT-PCR) Neg for Influ A Influenza Type B (RT-PCR) Neg for Influ B Test 10/15/17 04:20 10/15/17 05:54 10/15/17 06:47 Arterial Blood pH 7.39 Arterial Blood Partial Pressure CO2 23 mmHg Arterial Blood Partial Pressure O2 118 mm/Hg Arterial Blood HCO3 14 mmol/L Arterial Blood Oxygen Saturation 97.2 % Arterial Blood Base Excess -10.0 mEq/L Arterial Blood Gas Delivery 3 L Shun Test POS Total Bilirubin 1.8 mg/dl Direct Bilirubin 1.5 mg/dl Aspartate Amino Transf (AST/SGOT) 130 U/L Alanine Aminotransferase (ALT/SGPT) 106 U/L Alkaline Phosphatase 306 U/L Pro-B-Type Natriuretic Peptide 1847 pg/ml Total Protein 4.6 gm/dl Albumin 1.3 gm/dl Bedside Glucose 57 mg/dl 103 mg/dl Diagnostic Results I independently reviewed the chest x-ray which was largely unremarkable I completed a limited bedside ultrasound of the heart, lungs, right upper quadrant. The limited bedside echo appeared to be hyperdynamic with normal left ventricular and right ventricular size The chest ultrasound appeared to have a type a profile without B lines and without significant consolidation The limited ultrasound of the right upper quadrant revealed hypodensities within the liver I reviewed the images of the CT chest PE protocol as well as the stat radiology report I reviewed the images of the CT with contrast of the abdomen and pelvis: Was clear the patient had numerous hepatic lesions which could represent abscess versus mass versus combination of thereof. Assessment & Plan Reason Critically Ill: Patient is a 57-year-old male who is in severe sepsis with a significant lactic acidosis. PLAN: Neuro: Patient is alert and oriented Resp: Patient was initially hypoxic reportedly in the low 80s upon his arrival in the ED, this improved with supplemental O2, 3 L he was able to speak in complete sentences CV: Hypotension * Improved with aggressive hydration recommended 30 mL/kg fluid bolus, also given albumin during resuscitation Fluids/Renal: Acute kidney injury * Aggressive hydration ID: Initial concern was respiratory infection, possible influenza * Patient has penicillin allergy * Started aztreonam for gram-negative coverage * Flagyl for anaerobic coverage * Doxycycline for atypical pneumonia * Tamiflu for possible influenza * Vancomycin for gram-positive coverage GI/Nutrition: Liver mass transaminitis * Patient could be in acute liver failure * This could be a cause of patient's hypoglycemia upon arrival * IV thiamine for lactic acidosis * Consider acetylcysteine * Patient's intrahepatic masses could represent cancer versus abscess. He would require interventional radiology and most likely hepatology and or oncologic surgery. None of these specialties are available at this institution , patient will be transferred to higher level of care Heme: History of venous thromboembolism * Elevated INR possible secondary to hepatic insufficiency Endocrine: Hypoglycemia * Resolved with glucose administration possible hepatic insufficiency I have personally spent 45 minutes of critical care time in the direct management of this patient. This is a life/limb threatening event. This includes time spent evaluating patient, direct bedside care, chart review, placing orders, interpretation of diagnostic studies, discussion with consultants, patient, and family members, as well as other required patient management activities. This time is exclusive of all separately billable procedures, and teaching time and separate from and in addition to any other critical care service time. I discussed this case with Dr. Alcocer in the emergency department. Time in 04 :15 time out 0500
== END 2017-10-15 07:05 | disposition short-term general hospital (02) ==
LOC: C.EDB 03:27 → C.EDA 07:05
DX: A41.9 Sepsis, unspecified organism (principal); R65.21 Severe sepsis with septic shock; K75.0 Abscess of liver; E16.2 Hypoglycemia, unspecified; R74.8 Abnormal levels of other serum enzymes; D64.9 Anemia, unspecified; R00.0 Tachycardia, unspecified; Z79.82 Long term (current) use of aspirin; Z79.899 Other long term (current) drug therapy; Z88.0 Allergy status to penicillin; Z88.5 Allergy status to narcotic agent

== ENCOUNTER → 2017-11-04 | Outpatient (CLI) | payer OTHER ==
[~2017-11-04] MED LIST changes: +ASCO10003 PO; -ASPI325T39 PO; +ASPI81TA28 PO; -AZITTAB PO; +CHOL1000 PO; +DOCU100C31 PO; +HYDR1LOT6 TOP; +IBUP-1050 PO; +LEVO1TAB33 PO; +METR-163 PO; +RANI150T85 PO; +RIVA1.5T PO
[2017-11-04 13:33] LABS: BASO % 1.8 %; EOS ABS # 0.38 K/uL (0-0.5); HEMATOCRIT 31.8 % (42-52); LYMPH % 36.5 %; LYMPH ABS # 1.98 K/uL (1.2-3.4); MEAN CELL VOLUME 94.1 fL (80-100); MEAN CORPUSCULAR HEMOGLOBIN 29.6 pg (25-34); MEAN CORPUSCULAR HGB CONC 31.4 g/dl (32-36); MEAN PLATELET VOLUME 9.8 fL (7.4-10.4); MONO % 8.9 %; MONO ABS # 0.48 K/uL (0.11-0.59); NEUT % 45.8 %; NEUT ABS # 2.48 K/uL (1.4-6.5); PLATELET COUNT 269 K/uL (130-400); RED CELL DISTRIBUTION WIDTH CV 22.4 % (11.5-14.5); RED CELL DISTRIBUTION WIDTH SD 75.4 fL (36.4-46.3); WHITE BLOOD COUNT 5.42 K/uL (4.8-10.8)
[2017-11-04 13:51] LABS: BLOOD UREA NITROGEN 10 mg/dl (7-18); CALCIUM 8.6 mg/dl (8.5-10.1); CARBON DIOXIDE 28 mmol/L (21-32); CREATININE 0.77 mg/dl (0.60-1.40); GLUCOSE 93 mg/dl (70-99); POTASSIUM 3.8 mmol/L (3.5-5.1); SODIUM 136 mmol/L (136-145)
--- NOTE | 2017-11-05 09:51 | CODING QUERY NO DIAGNOSIS ---
Valid Physician Order Needed 61 A valid physician order must be submitted in order to properly bill for the service(s) provided, including date of service(s), valid diagnosis, and physician signature. If these tests are done on a recurring basis the original physician order must be submitted in order to code and bill for the service(s) provided. Please fax us the original, signed physician order so that we may expedite billing to [phone] DOS 11/04/2017 * PARTIAL RENAL PROFILE * CBC WITH AUTO DIFF Thank you Dominga [facility] Information Management
== END | disposition home or self-care (01) ==
LOC: C.LABSPEC 12:33
PROVIDERS: ATTEND Student in an Organized Health Care Education/Training Program
DX: K75.0 Abscess of liver (principal); I10 Essential (primary) hypertension

== ENCOUNTER 2017-11-22 21:25 | Emergency (ER) | payer OTHER ==
[~2017-11-22] VITALS: Ht 182.9 cm; Wt 105.6 kg
[~2017-11-22 21:25] MED LIST changes: -DOCU100C31 PO; -HYDR1LOT6 TOP; -METR-163 PO; -RANI150T85 PO; -RIVA1.5T PO; +ZNTT/150 PO
[2017-11-22 21:26] VITALS: TEMP 36.7; Ht 182.9 cm; Wt 105.6 kg
--- NOTE | 2017-11-22 21:59 | EMERGENCY ROOM VISIT NOTE ---
History First contact with patient: 21:34 Chief Complaint: ARM PAIN Stated Complaint: PAIN IN R ARM NEAR PICC LINE, AWAY FROM HEART History of Present Illness The patient is a 57 year old male who presents to the Emergency Room with complaints of right arm pain. The patient reports that he was recently treated for sepsis and had a PICC line. He had this removed yesterday early afternoon. He reports that he has had some pain proximal to the site of the PICC line since that occurred. He contacted his PCP and they told him this was likely inflammation of the vein. He states that today, he noticed some pain distal to the PICC line site and was seen at the walk-in clinic. He was sent here for further evaluation of possible blood clot. He does report a history of a DVT which occurred after travel. He reports that he now takes Xarelto only when he travels. He does not smoke. He denies fevers, chest pain, shortness of breath. Review of Systems A complete 10 point review of systems was reviewed with the patient with pertinent positives and negatives as per history of present illness. All else were negative. Past Medical/Surgical History Medical Problems: (1) DVT (deep venous thrombosis) (2) HTN (hypertension) Family History Patient reports no known family medical history. Social History Smoking Status: Never Smoker Drug Use: none Marital Status: Housing Status: lives with family Occupation Status: employed Current/Historical Medications Scheduled Ascorbic Acid (Vitamin C), 1,000 MG PO DAILY Aspirin (Aspirin Ec), 243 MG PO DAILY Cholecalciferol (Vitamin D3), 1,000 UNITS PO DAILY Docusate Sodium (Docusate Sodium), 1 CAP PO BID Fish Oil ([place]-3), 2 CAP PO DAILY Hydrocortisone (Topical) (Hydrocortisone), 1 APPLN TOP PRN Metronidazole (Flagyl), 500 MG PO TID Multivitamin (Multivitamin), 1 TAB PO DAILY Rivaroxaban (Xarelto), 15 MG PO BID Scheduled PRN Acetaminophen (Tylenol), 650 MG PO DIRECTED PRN for Pain or Fever Ibuprofen (Advil), 200-600 MG PO Q4H PRN for Pain or Fever Rivaroxaban (Xarelto), Unknown Dose PO DAILY PRN for "DAYS OF TRAVEL" ONLY Physical Exam Vital Signs Date Time Temp Pulse Resp B/P (MAP) Pulse Ox O2 Delivery O2 Flow Rate FiO2 11/23/17 01:15 96 157/109 95 11/22/17 21:26 36.7 98 18 153/99 97 Room Air Physical Exam VITALS: Vitals are noted on the nurse's note and reviewed by myself. Vital signs stable. GENERAL: This is a 57-year-old male, in no acute distress, nondiaphoretic, well- developed well-nourished. SKIN: There is mild erythema and some tenderness to palpation of the right upper arm. No palpable cords. HEART: Regular rate and rhythm without murmurs gallops or rubs. LUNGS: Clear to auscultation bilaterally without wheezes, rales or rhonchi. NEURO: Patient was alert and oriented to person place and time. Medical Decision & Procedures ER Provider Diagnostic Interpretation: RIGHT UPPER EXTREMITY VENOUS DOPPLER HISTORY: right arm pain, recent PICC line removal COMPARISON STUDY: None. FINDINGS: The right internal jugular vein is patent. There is normal flow and compressibility within the right basilic, radial, ulnar, and visualized cephalic veins. Nonocclusive thrombus identified within the right subclavian vein. Occlusive thrombus seen within the right axillary and basilic veins. IMPRESSION: Right upper extremity DVT as described above. Laboratory Results 11/22/17 22:10 Red Blood Count 4.24, Mean Corpuscular Volume 91.5, Mean Corpuscular Hemoglobin 30.9, Mean Corpuscular Hemoglobin Concent 33.8, Mean Platelet Volume 10.3, Neutrophils (%) (Auto) 41.3, Lymphocytes (%) (Auto) 42.2, Monocytes (%) (Auto) 10.3, Eosinophils (%) (Auto) 5.3, Basophils (%) (Auto) 0.7, Neutrophils # (Auto ) 2.48, Lymphocytes # (Auto) 2.53, Monocytes # (Auto) 0.62, Eosinophils # (Auto ) 0.32, Basophils # (Auto) 0.04 11/22/17 22:10 Test 11/22/17 22:10 White Blood Count 6.00 K/uL (4.8-10.8) Red Blood Count 4.24 M/uL (4.7-6.1) Hemoglobin 13.1 g/dL (14.0-18.0) Hematocrit 38.8 % (42-52) Mean Corpuscular Volume 91.5 fL (80-100) Mean Corpuscular Hemoglobin 30.9 pg (25-34) Mean Corpuscular Hemoglobin Concent 33.8 g/dl (32-36) Platelet Count 175 K/uL (130-400) Mean Platelet Volume 10.3 fL (7.4-10.4) Neutrophils (%) (Auto) 41.3 % Lymphocytes (%) (Auto) 42.2 % Monocytes (%) (Auto) 10.3 % Eosinophils (%) (Auto) 5.3 % Basophils (%) (Auto) 0.7 % Neutrophils # (Auto) 2.48 K/uL (1.4-6.5) Lymphocytes # (Auto) 2.53 K/uL (1.2-3.4) Monocytes # (Auto) 0.62 K/uL (0.11-0.59) Eosinophils # (Auto) 0.32 K/uL (0-0.5) Basophils # (Auto) 0.04 K/uL (0-0.2) RDW Standard Deviation 60.3 fL (36.4-46.3) RDW Coefficient of Variation 18.3 % (11.5-14.5) Immature Granulocyte % (Auto) 0.2 % Immature Granulocyte # (Auto) 0.01 K/uL (0.00-0.02) Prothrombin Time 10.8 SECONDS (9.0-12.0) Prothromb Time International Ratio 1.0 (0.9-1.1) Activated Partial Thromboplast Time 26.3 SECONDS (21.0-31.0) Partial Thromboplastin Ratio 1.0 Anion Gap 6.0 mmol/L (3-11) Est Creatinine Clear Calc Drug Dose 120.5 ml/min Estimated GFR () 112.4 Estimated GFR (Non- 96.9 BUN/Creatinine Ratio 22.2 (10-20) Calcium Level 9.3 mg/dl (8.5-10.1) Medications Administered Medications (Trade) Dose Ordered Sig/Nicolle Route Start Time Stop Time Status Last Admin Dose Admin Rivaroxaban (Xarelto Tab) 15 mg NOW STAT PO 11/22/17 23:49 11/22/17 23:51 DC 11/23/17 00:07 15 MG Medical Decision Differential diagnosis includes DVT, superficial thrombosis, phlebitis, among others. The patient is a 57-year-old male who presents today complaining of right upper arm pain after PICC line removal. Ultrasound was performed and showed DVT of the right upper extremity. Patient has taken Xarelto in the past and has done very well with this. He will be started on Xarelto and follow-up with his primary care provider for further instructions. There is no chest pain or shortness of breath to suggest PE. He understands to return if he has any worsening or new/concerning symptoms, specifically chest pain or shortness of breath. The patient's case was reviewed with Dr. Baeza, ED attending physician, who agreed with my assessment and treatment plan. Based on the patient's presentation and work up, I feel the patient is stable for outpatient treatment. The patient was educated to return to the emergency department for any worsening of their current condition or new/concerning symptoms. He will follow up with his PCP. Medication Reconcilliation Current Medication List: was personally reviewed by me Blood Pressure Screening Patient's blood pressure: Elevated blood pressure Impression Primary Impression: DVT (deep venous thrombosis) Departure Information Dispostion Home / Self-Care Condition GOOD Prescriptions Rivaroxaban (XARELTO) 15 Mg Tab 15 MG PO BID for 21 Days, #42 TAB Prov: Linda Alvarado ., BREANNE 11/23/17 Referrals David Garcia M.D. (PCP) Patient Instructions My [facility] Additional Instructions Xarelto, 15 mg twice daily as prescribed for the next 21 days, then as directed by your primary care provider. Contact your primary care provider in the morning to schedule follow-up within 1 week. Be aware that while taking Xarelto, your blood will be thinner than usual. If you cut yourself, you may bleed longer than usual. If you sustain a head injury , you should come here for evaluation. Return to the emergency department with any chest pain, shortness of breath or any other worsening or new/concerning symptoms. Problem Qualifiers Primary Impression: DVT (deep venous thrombosis) DVT location: upper extremity Affected thrombotic vein of extremity: axillary Chronicity: acute Laterality: right Qualified Codes: I82.A11 - Acute embolism and thrombosis of right axillary vein
[2017-11-22] MEDS ORDERED: DOCU100C31 PO (22:14)
[2017-11-22] MEDS ORDERED: HYDR1LOT6 TOP (22:14)
[2017-11-22] MEDS ORDERED: METR-163 PO (22:14)
[2017-11-22 22:27] LABS: BASO % 0.7 %; BASO ABS # 0.04 K/uL (0-0.2); EOS % 5.3 %; EOS ABS # 0.32 K/uL (0-0.5); HEMATOCRIT 38.8 % (42-52); HEMOGLOBIN 13.1 g/dL (14.0-18.0); IG# 0.01 K/uL (0.00-0.02); LYMPH % 42.2 %; LYMPH ABS # 2.53 K/uL (1.2-3.4); MEAN CELL VOLUME 91.5 fL (80-100); MEAN CORPUSCULAR HEMOGLOBIN 30.9 pg (25-34); MEAN CORPUSCULAR HGB CONC 33.8 g/dl (32-36); MEAN PLATELET VOLUME 10.3 fL (7.4-10.4); MONO % 10.3 %; MONO ABS # 0.62 K/uL (0.11-0.59); NEUT % 41.3 %; NEUT ABS # 2.48 K/uL (1.4-6.5); PLATELET COUNT 175 K/uL (130-400); RED CELL DISTRIBUTION WIDTH CV 18.3 % (11.5-14.5); RED CELL DISTRIBUTION WIDTH SD 60.3 fL (36.4-46.3)
[2017-11-22 22:37] LABS: PTT PATIENT 26.3 SECONDS (21.0-31.0)
[2017-11-22 22:45] LABS: CALCIUM 9.3 mg/dl (8.5-10.1); CREATININE 0.86 mg/dl (0.60-1.40); POTASSIUM 3.5 mmol/L (3.5-5.1)
--- NOTE | 2017-11-22 23:04 | DIAGNOSTIC IMAGING REPORT ---
RIGHT UPPER EXTREMITY VENOUS DOPPLER HISTORY: right arm pain, recent PICC line removal COMPARISON STUDY: None. FINDINGS: The right internal jugular vein is patent. There is normal flow and compressibility within the right basilic, radial, ulnar, and visualized cephalic veins. Nonocclusive thrombus identified within the right subclavian vein. Occlusive thrombus seen within the right axillary and basilic veins. IMPRESSION: Right upper extremity DVT as described above. Electronically signed by: Tristen Connor M.D. 11/22/2017 11:03 PM Dictated Date/Time: 11/22/2017 11:01 PM
[2017-11-22] MEDS ORDERED: RIVAROXABAN TAB 15 MG TAB PO STA (23:49)
[2017-11-23] MEDS ORDERED: RIVA1.5T PO (00:14)
[2017-11-23 01:15] VITALS: BP 157/109; PULSE 96; O2SAT 95
== END 2017-11-23 01:15 | disposition home or self-care (01) ==
LOC: C.EDB 21:25 → C.EDC 11-23 01:15
DX: I82.A11 Acute embolism and thrombosis of right axillary vein (principal); I82.611 Acute embolism and thrombosis of superficial veins of right upper extremity; Z98.890 Other specified postprocedural states; I10 Essential (primary) hypertension; Z79.82 Long term (current) use of aspirin